=== PATIENT | female | born 1995 | race American Indian/Alaskan Native ===

== ENCOUNTER 2017-09-13 09:21 | Emergency (ER) | payer MEDICAID, OTHER ==
[2017-09-13 09:41] VITALS: BP 115/66
--- NOTE | 2017-09-13 10:01 | Emergency Department Report ---
ED Shortness of Breath HPI - General Chief Complaint: Dyspnea/Respdistress Stated Complaint: SHORTNESS OF BREATH Time Seen by Provider: 09/13/17 09:50 Source: patient Mode of arrival: Ambulatory Limitations: No Limitations - History of Present Illness Initial Comments: Patient is 21 years old female history of asthma. Patient presented to the ER complaining off shortness of breath and feeling awful obstruction in her chest has been going on for 3 weeks. Patient stated that she saw her primary care physician one week ago and she was given Spiriva and steroid but there is no improvement. Patient stated that her symptoms is completely different from her asthma attack. She stated that she is having generalized weakness and as a day ago by she feel more tired and fatigued. Patient denied any fever, nausea or vomiting. No diarrhea. No abdominal pain or other complaint at this moment. MD Complaint: shortness of breath - Related Data Previous Rx's Medication Instructions Recorded Last Taken Type Doxycycline Monohydrate 100 mg PO 20 #20 capsule 05/08/14 Unknown Rx [Doxycycline Monohydrate CAP] HYDROcodone/APAP 5-325 [[place] 1 each PO Q6HR PRN #20 tablet 05/08/14 Unknown Rx 5/325] Ondansetron [Zofran] 4 mg PO Q6HR PRN #20 tablet 05/08/14 Unknown Rx Dicyclomine [Bentyl] 20 mg PO QID #20 tablet 09/24/14 Unknown Rx Promethazine [Phenergan TAB] 25 mg PO Q6HR PRN #10 tab 09/24/14 Unknown Rx Allergies Allergy/AdvReac Type Severity Reaction Status Date / Time egg AdvReac Itching Verified 09/24/14 17:00 ED Review of Systems ROS: Stated complaint: SHORTNESS OF BREATH Other details as noted in HPI Comment: All other systems reviewed and negative Constitutional: denies: chills, fever Cardiovascular: denies: chest pain Gastrointestinal: denies: abdominal pain, nausea, vomiting, diarrhea, constipation, hematemesis, hematochezia Neurological: denies: headache ED Past Medical Hx - Past Medical History Previous Medical History?: Yes Hx GERD: Yes Hx Asthma: Yes Additional medical history: anemia. PUD, anxiety - Surgical History Past Surgical History?: No - Social History Smoking Status: Never Smoker Substance Use Type: Alcohol, Prescribed - Medications Home Medications: Home Medications Medication Instructions Recorded Confirmed Last Taken Type Doxycycline Monohydrate 100 mg PO 20 #20 capsule 05/08/14 Unknown Rx [Doxycycline Monohydrate CAP] HYDROcodone/APAP 5-325 [[place] 1 each PO Q6HR PRN #20 tablet 05/08/14 Unknown Rx 5/325] Ondansetron [Zofran] 4 mg PO Q6HR PRN #20 tablet 05/08/14 Unknown Rx Dicyclomine [Bentyl] 20 mg PO QID #20 tablet 09/24/14 Unknown Rx Promethazine [Phenergan TAB] 25 mg PO Q6HR PRN #10 tab 09/24/14 Unknown Rx ED Physical Exam - General Limitations: No Limitations General appearance: alert, in no apparent distress - Head Head exam: Present: atraumatic, normocephalic, normal inspection - Eye Eye exam: Present: normal appearance, PERRL - ENT ENT exam: Present: normal exam, normal orophraynx, mucous membranes moist - Neck Neck exam: Present: normal inspection, full ROM. Absent: tenderness, meningismus, lymphadenopathy, thyromegaly - Respiratory Respiratory exam: Present: normal lung sounds bilaterally. Absent: respiratory distress, wheezes, rales, rhonchi, stridor, chest wall tenderness, accessory muscle use, decreased breath sounds, prolonged expiratory - Cardiovascular Cardiovascular Exam: Present: regular rate, normal rhythm, normal heart sounds - Extremities Exam Extremities exam: Present: normal inspection, full ROM, normal capillary refill - Back Exam Back exam: Present: normal inspection, full ROM. Absent: tenderness, CVA tenderness (R), CVA tenderness (L), muscle spasm, paraspinal tenderness, vertebral tenderness - Neurological Exam Neurological exam: Present: alert, oriented X3, CN II-XII intact, normal gait - Skin Skin exam: Present: warm, intact, normal color ED Course Vital Signs 09/13/17 09:36 Temperature 97.6 F Pulse Rate 80 Respiratory 20 Rate Blood Pressure 115/66 O2 Sat by Pulse 97 Oximetry ED Medical Decision Making - Lab Data Result diagrams: 09/13/17 10:04 09/13/17 10:04 - EKG Data -: EKG Interpreted by Nv EKG shows normal: sinus rhythm Rate: normal - EKG Data Interpretation: no acute changes - Radiology Data Radiology results: report reviewed Referring Physician: CHERYL LAURENT Patient Name: INGRIS HARRINGTON Date of : 1995 Sex: Female Report Date: 2017-09-13 Report Status: Finalized Findings [facility] [address] [place] [address] XRay Report Signed Patient: INGRIS HARRINGTON MR#: [id number] : 1995 Acct:[id number] Age/Sex: 21 / F ADM Date: 09/13/17 Loc: ED Attending Dr: Ordering Physician: CHERYL LAURENT Date of Service: 09/13/17 Procedure(s): XR chest routine 2V Accession Number(s): [id number] cc: CHERYL LAURENT Fluoro Time In Minutes: CHEST 2 VIEWS INDICATION: Dyspnea. COMPARISON: 11/11/2009. FINDINGS: PA and lateral chest radiographs demonstrate normal cardiomediastinal silhouette. Clear lungs. Slight spinal curvature, possibly positional versus scoliosis. CONCLUSION: No acute disease in the chest. Thank you for the opportunity to participate in this patient's care. Transcribed By: RS Dictated By: GARY CROWLEY MD Electronically Authenticated By: GARY CROWLEY MD Signed Date/Time: 09/13/17 1106 DD/ 1105 TD/TT: 09/13/17 1106 - Medical Decision Making Patient stated that she is feeling much better after the albuterol Atrovent treatment. I advised the patient to follow-up with her primary care physician for possible repair to a refinish technician. Critical care attestation.: If time is entered above; I have spent that time in minutes in the direct care of this critically ill patient, excluding procedure time. ED Disposition Clinical Impression: Shortness of breath Disposition: DC-01 TO HOME OR SELFCARE Is pt being admited?: No Condition: Stable Instructions: Dyspnea (ED)
[2017-09-13 10:16] LABS: Basophils # (Auto) 0.1 K/mm3 (0.0-0.1); Basophils % (Auto) 0.5 % (0.0-1.8); Eosinophils # (Auto) 0.1 K/mm3 (0.0-0.4); Eosinophils % (Auto) 0.8 % (0.0-4.3); Hemoglobin 13.7 gm/dl (10.1-14.3); Lymphocytes # (Auto) 2.9 K/mm3 (1.2-5.4); Lymphocytes % (Auto) 28.3 % (13.4-35.0); Mean Corpuscular HGB Conc 34 % (30-34); Mean Corpuscular Hemoglobin 27 pg (28-32); Mean Corpuscular Volume 81 fl (79-97); Monocytes # (Auto) 0.8 K/mm3 (0.0-0.8); Monocytes % (Auto) 7.5 % (0.0-7.3); Platelet Count 275 K/mm3 (140-440); Red Blood Count 5.09 M/mm3 (3.65-5.03); Red Cell Distribution Width 13.6 % (13.2-15.2)
[2017-09-13 10:42] LABS: Alanine Aminotransferase 10 units/L (7-56); Albumin 3.9 g/dL (3.9-5); BUN/Creatinine Ratio 15; Blood Urea Nitrogen 12 mg/dL (7-17); Calcium 9.5 mg/dL (8.4-10.2); Hemolysis Index 3
[2017-09-13 10:47] LABS: Free T4 (Free Thyroxine) 1.44 ng/dL (0.76-1.46)
--- NOTE | 2017-09-13 11:13 | XRay Report ---
CHEST 2 VIEWS INDICATION: Dyspnea. COMPARISON: 11/11/2009. FINDINGS: PA and lateral chest radiographs demonstrate normal cardiomediastinal silhouette. Clear lungs. Slight spinal curvature, possibly positional versus scoliosis. CONCLUSION: No acute disease in the chest. Thank you for the opportunity to participate in this patient's care.
[2017-09-13] MEDS ORDERED: PROVENTIL IH ONE ×2 (11:59→12:00)
== END 2017-09-13 12:48 | disposition home or self-care (01) ==
LOC: ED 09:21
DX: R06.02 Shortness of breath (principal); K21.9 Gastro-esophageal reflux disease without esophagitis; J45.909 Unspecified asthma, uncomplicated
CPT/HCPCS: 36415; 71046; 80053; 83880; 84439; 84443; 84703; 85025; 85379; 93005; 93010